=== PATIENT | female | born 1965 | race Caucasian/White ===

== ENCOUNTER 2016-10-19 08:15 | Emergency (ER) | payer MEDICARE ==
[2016-10-19 09:08] LABS: BASOPHILS 0.2 % (0-2); EOSINOPHILS 2.1 % (0-7); HEMATOCRIT 36.8 % (36.0-48.0); HEMOGLOBIN 11.3 g/dL (12-16); IMMATURE GRANULOCYTES 0.2 % (0-5); LYMPHOCYTES 18.5 % (15-50); MCH 22.3 pg (26.0-34.0); MCHC 30.7 g/dL (31.0-37.0); MCV 72.7 fL (80.0-100.0); MONOCYTES 7.3 % (2-11); NEUTROPHILS 71.7 % (40-80); PLATELET COUNT 180 10x3/uL (130-400); RBC 5.06 10x6/uL (4.00-5.40); RDW 18.8 % (11.5-14.5); WBC 8.1 10x3/uL (4.8-10.8)
[2016-10-19 09:20] LABS: ALBUMIN 3.5 g/dL (3.4-5.0); ANION GAP 15.2 mmol/L (8-16); BILIRUBIN - TOTAL 0.39 mg/dL (0.2-1.3); CARBON DIOXIDE 23.7 mmol/L (21.0-32.0); POTASSIUM - SERUM 3.9 mmol/L (3.5-5.1); PROTEIN - SERUM 7.8 g/dL (6.4-8.2)
== END 2016-10-19 11:26 | disposition home or self-care (01) ==
LOC: D.ER 08:15
PROVIDERS: Emergency Medicine
DX: S16.1XXA Strain of muscle, fascia and tendon at neck level, initial encounter (principal); V49.9XXA Car occupant (driver) (passenger) injured in unspecified traffic accident, initial encounter; Y93.89 Activity, other specified; Y92.410 Unspecified street and highway as the place of occurrence of the external cause; S39.012A Strain of muscle, fascia and tendon of lower back, initial encounter; I10 Essential (primary) hypertension; E03.9 Hypothyroidism, unspecified

== ENCOUNTER → 2016-11-22 08:20 | Outpatient (CLI) | payer MEDICARE | END | disposition home or self-care (01) | LOC: D.NM 08:20 | DX: M25.561 Pain in right knee (principal) ==

== ENCOUNTER 2017-02-06 10:36 | Inpatient (IN) | payer MEDICARE ==
[~2017-02-06] VITALS: Ht 160 cm; Wt 124.3 kg
[2017-02-06 11:57] LABS: BASOPHILS 0.3 % (0-2); EOSINOPHILS 4.1 % (0-7); HEMATOCRIT 29.3 % (36.0-48.0); HEMOGLOBIN 8.9 g/dL (12-16); IMMATURE GRANULOCYTES 1.1 % (0-5); LYMPHOCYTES 24.2 % (15-50); MCH 22.1 pg (26.0-34.0); MCHC 30.4 g/dL (31.0-37.0); MCV 72.9 fL (80.0-100.0); MEAN PLATELET VOLUME 10.1 fL (7.4-10.4); MONOCYTES 7.6 % (2-11); NEUTROPHILS 62.7 % (40-80); PLATELET COUNT 184 10x3/uL (130-400); RBC 4.02 10x6/uL (4.00-5.40); RDW 18.9 % (11.5-14.5); WBC 6.3 10x3/uL (4.8-10.8)
[2017-02-06 12:05] LABS: APTT 29.1 SECONDS (22.8-39.4)
[2017-02-06 12:06] LABS: D-DIMER-QUANTITATIVE 2.54 ug/mLFEU (0.20-0.54)
[2017-02-06 12:09] LABS: ALBUMIN 3.7 g/dL (3.4-5.0); ANION GAP 11.8 mmol/L (8-16); BILIRUBIN - TOTAL 0.96 mg/dL (0.2-1.3); CALCIUM 8.4 mg/dL (8.5-10.1); CARBON DIOXIDE 27.4 mmol/L (21.0-32.0); CREATININE - SERUM 0.9 mg/dL (0.6-1.3); POTASSIUM - SERUM 4.2 mmol/L (3.5-5.1); PROTEIN - SERUM 7.2 g/dL (6.4-8.2)
[2017-02-06 12:17] LABS: MAGNESIUM - SERUM 2.1 mg/dL (1.8-2.4)
--- NOTE | 2017-02-06 15:07 | NUR ---
RECEIVED TO ROOM 2228 AT THIS TIME FROM ER VIA WHEELCHAIR. ALERT AND ORIENTED AT THIS TIME. IV TO LEFT WRIST PATENT. ASSESSMENT AND HISTORY OBTAINED PER FLOWSHEET. WILL CONTINUE WITH PLAN OF CARE. CALL LIGHT IN REACH.
[2017-02-06] MEDS ORDERED: ARMOUR THYROID90 MG PO (15:10)
[2017-02-06] MEDS ORDERED: LANOXIN250 MCG PO (15:10)
[2017-02-06] MEDS ORDERED: DEMADEX20 MG PO (15:11)
[2017-02-06] MEDS ORDERED: OXYCODONE HCL5 MG PO (15:12)
[2017-02-06] MEDS ORDERED: LISINOPRIL10 MG PO (15:12)
[2017-02-06] MEDS ORDERED: NAPROSYN500 MG PO (15:14)
[2017-02-06 15:43] VITALS: BP 186/85; BMI 48.6
--- NOTE | 2017-02-06 16:27 | NUR ---
LEAD SHAREPOINT DEVELOPER INITIATED AT THIS TIME PER ORDER.
[2017-02-06 16:42] VITALS: BP 185/92
[2017-02-06 16:53] LABS: CKMB 9.2 U/L (0.0-3.6); CREATINE KINASE 96 UL (21-215)
[2017-02-06 17:07] LABS: TROPONIN-I < 0.017 ng/mL (0.000-0.060)
[2017-02-06 20:00] VITALS: BP 144/78
[2017-02-06 22:00] LABS: CREATINE KINASE 81 UL (21-215)
[2017-02-06 22:01] LABS: TROPONIN-I < 0.017 ng/mL (0.000-0.060)
[2017-02-07] VITALS (7 sets, daily range): BP systolic 132–177; BP diastolic 59–96; Ht 160 cm; Wt 124.3 kg
--- NOTE | 2017-02-07 00:35 | NUR ---
PATIENT IS AWAKE, ALERT AND ORIENTED X'S 4. RESPIRATIONS ARE EVEN AND UNLABORED ON ROOM AIR. NO SIGNS OF DISTRESS NOTED. BED IN LOWEST POSITION, CALL LIGHT IN REACH. BED RAILS UP X'S 2. CONVERSATED WITH PATIENT FOR AWHILE SHE IS VERY PLEASENT.
--- NOTE | 2017-02-07 00:41 | NUR ---
MANUAL BP 140/78 HANDY WORKER REPORTED A BP OF 177/96. PATIENT EXPLAINED THAT SHE WAS STARTLED WHEN THE HANDY WORKER CAME IN. NO NEEDS NOTED AT THIS TIME.
[2017-02-07 06:01] LABS: BASOPHILS 0.2 % (0-2); EOSINOPHILS 1.2 % (0-7); HEMATOCRIT 29.8 % (36.0-48.0); HEMOGLOBIN 9.1 g/dL (12-16); IMMATURE GRANULOCYTES 0.8 % (0-5); LYMPHOCYTES 11.8 % (15-50); MCH 22.3 pg (26.0-34.0); MCHC 30.5 g/dL (31.0-37.0); MEAN PLATELET VOLUME 10.5 fL (7.4-10.4); MONOCYTES 2.7 % (2-11); NEUTROPHILS 83.3 % (40-80); PLATELET COUNT 180 10x3/uL (130-400); RBC 4.08 10x6/uL (4.00-5.40); RDW 19.3 % (11.5-14.5)
[2017-02-07 06:35] LABS: ALBUMIN 3.5 g/dL (3.4-5.0); ANION GAP 12.2 mmol/L (8-16); BILIRUBIN - TOTAL 0.64 mg/dL (0.2-1.3); CALCIUM 8.4 mg/dL (8.5-10.1); CARBON DIOXIDE 27.2 mmol/L (21.0-32.0); POTASSIUM - SERUM 4.4 mmol/L (3.5-5.1); PROTEIN - SERUM 7.3 g/dL (6.4-8.2)
[2017-02-07 07:01] LABS: CREATINE KINASE 60 UL (21-215)
[2017-02-07 07:02] LABS: TROPONIN-I < 0.017 ng/mL (0.000-0.060)
--- NOTE | 2017-02-07 07:45 | NUR ---
ASSESSMENT PER FLOW SHEET.PT WITHOUT DISTRESS.PAIN 8/10 SCALE TO THE TOP OF RIGHT FOOT (BURNING).SHE ALSO REPORTS PAIN TO RIGHT CHEST WHEN SHE TAKES A BREATH.INCISION RIGHT KNEE APROXIMATED WITH JACOB,SITE WITHOUT DRAINAGE.MONITOR FOR NEEDS.NUCLEAR LOGGING ENGINEER USE INSTRUCTED.
--- NOTE | 2017-02-07 18:03 | NUR ---
REMAINS WITHOUT DISTRESS.STILL C/O PAIN IN RIGHT FOOT AND RIGHT CHEST/SIDE. WITHOUT CHANGE.CONT PLAN OF CARE
--- NOTE | 2017-02-07 20:50 | NUR ---
REPORT RECEIVED FROM MANAGER PROFESSIONAL DEVELOPMENT NURSE. CALL LIGHT IN REACH.
--- NOTE | 2017-02-07 21:20 | NUR ---
ASSESSMENT COMPLETED. PM MEDS ADMINISTERED. CALL LIGHT IN REACH. WILL CONTINUE WITH PLAN OF CARE.
--- NOTE | 2017-02-07 23:29 | NUR ---
NO NEEDS VOICED AT THIS TIME. CALL LIGHT IN REACH.
[2017-02-08] VITALS: BP 156/78
--- NOTE | 2017-02-08 00:23 | NUR ---
STATES SHE FEELS LIKE SHE NEEDS OXYGEN AFTER GETTING UP. O2 SAT 96% ON ROOM AIR BUT PATIENT VERY SHORT OF BREATH. NO WHEEZING AUSCULTATED. STATES SHE FELT BETTER WHEN SHE WAS GETTING BREATHING TREATMENTS. WILL CALL MD FOR NEW ORDERS.
--- NOTE | 2017-02-08 00:27 | NUR ---
SPOKE WITH DR. WELSH. NEW ORDERS RECEIVED. RESPIRATORY THERAPIST NOTIFIED.
--- NOTE | 2017-02-08 00:44 | NUR ---
RT HERE FOR BREATHING TREATMENT.
--- NOTE | 2017-02-08 02:28 | NUR ---
RESTING WITH EYES CLOSED. RESP EVEN AND UNLABORED. CALL LIGHT IN REACH.
[2017-02-08 04:00] VITALS: BP 135/58
--- NOTE | 2017-02-08 04:00 | NUR ---
PT IN BED WITH NO DISTRESS. RESPIRATIONS EVEN AND UNLABORED. SIDE RAILS X 2. BED LOW. CALL LIGHT IN REACH.
[2017-02-08 05:37] LABS: BASOPHILS 0 % (0-2); EOSINOPHILS 0 % (0-7); HEMATOCRIT 27.1 % (36.0-48.0); HEMOGLOBIN 8.2 g/dL (12-16); IMMATURE GRANULOCYTES 0.8 % (0-5); LYMPHOCYTES 8.9 % (15-50); MCH 22.3 pg (26.0-34.0); MCHC 30.3 g/dL (31.0-37.0); MCV 73.8 fL (80.0-100.0); MONOCYTES 6.1 % (2-11); NEUTROPHILS 84.2 % (40-80); PLATELET COUNT 200 10x3/uL (130-400); RBC 3.67 10x6/uL (4.00-5.40); RDW 19.7 % (11.5-14.5); WBC 7.5 10x3/uL (4.8-10.8)
[2017-02-08 05:55] LABS: INR 1.12 (0.85-1.17); PROTIME 14.3 SECONDS (11.6-15.0)
--- NOTE | 2017-02-08 06:19 | NUR ---
NO CHANGES IN INITIAL ASSESSMENT. CALL LIGHT IN REACH. WILL CONTINUE WITH PLAN OF CARE.
[2017-02-08 06:30] LABS: ALBUMIN 3.6 g/dL (3.4-5.0); ANION GAP 14.4 mmol/L (8-16); BILIRUBIN - TOTAL 0.46 mg/dL (0.2-1.3); CALCIUM 8.8 mg/dL (8.5-10.1); CARBON DIOXIDE 24.5 mmol/L (21.0-32.0); CREATININE - SERUM 1.2 mg/dL (0.6-1.3); POTASSIUM - SERUM 4.9 mmol/L (3.5-5.1); PROTEIN - SERUM 7.1 g/dL (6.4-8.2)
--- NOTE | 2017-02-08 07:51 | NUR ---
CM MET WITH PATIENT REGARDING D/C NEEDS AND PLANS. PATIENT STATED SHE LIVES WITH HER SPOUSE (MELONIE) AND HE WILL DRIVE HER HOME AT DISCHARGE. PATIENT STATED SHE HAS NO STEPS OR STAIRS AT HER HOME. PATIENT IS PARTIAL DEPENDENT FOR HER ADLS-SPOUSE HELPS HER WITH BATHING AND DRESSING. PATIENT HAS A WALKER, SHOWER CHAIR, AND NEBULIZER AT HOME. PATIENTS PCP IS DR. BRIONES AND PHARMACY IS [facility] AT THE [facility]. PATIENT HAD A KNEE REVISION January AT [facility]. PATIENT STATED SHE IS GETTING AROUND GOOD WITH HER WALKER. HOME HEALTH WAS OFFERED AND PATIENT REFUSED AT THIS TIME. CM WILL CONTINUE TO FOLLOW PATIENT WITH D/C NEEDS AND PLANS. PCP DR. [facility] AT [facility]- [phone] MELONIE (SPOUSE) [phone]
--- NOTE | 2017-02-08 08:00 | NUR ---
ASSESSMENT PER FLOW SHEET.PT WITHOUT DISTRESS.CALL LIGHT IN REACH.
[2017-02-08 08:53] VITALS: BP 160/70
[2017-02-08 16:35] VITALS: BP 168/77
--- NOTE | 2017-02-08 18:27 | NUR ---
REMAINS WITHOUT DISTRESS.NEUROLOGY PHYSICIAN FOR PAIN.DENIES NEEDS.WITHOUT CHANGE.CONT PLAN OF CARE
[2017-02-08 20:00] VITALS: BP 153/71
[2017-02-09] VITALS: BP 138/81
--- NOTE | 2017-02-09 03:51 | NUR ---
RN NOTE: PT RESTING QUIETLY IN SEMI MANN'S POSITION WITH EYES CLOSED AND UNLABORED BREATHING. DRESSING ON RIGHT KNEE CLEAN AND DRY. IV IN LEFT WRIST PATENT WITH NS AT KVO AND MORPHINE TOBACCO GRADER IN USE FOR PAIN CONTROL. WILL CONTINUE TO MONITOR FOR NEEDS. CALL LIGHT WITHIN REACH.
[2017-02-09 04:00] VITALS: BP 127/50
[2017-02-09 05:42] LABS: BASOPHILS 0 % (0-2); EOSINOPHILS 0.1 % (0-7); HEMATOCRIT 27.3 % (36.0-48.0); HEMOGLOBIN 8.2 g/dL (12-16); IMMATURE GRANULOCYTES 0.4 % (0-5); MCH 22.2 pg (26.0-34.0); MCV 73.8 fL (80.0-100.0); MEAN PLATELET VOLUME 10.9 fL (7.4-10.4); MONOCYTES 7.5 % (2-11); PLATELET COUNT 183 10x3/uL (130-400); RDW 19.5 % (11.5-14.5); WBC 7.7 10x3/uL (4.8-10.8)
[2017-02-09 06:13] LABS: ALBUMIN 3.2 g/dL (3.4-5.0); BILIRUBIN - TOTAL 0.4 mg/dL (0.2-1.3); CALCIUM 8.3 mg/dL (8.5-10.1); PROTEIN - SERUM 6.6 g/dL (6.4-8.2)
[2017-02-09 06:18] LABS: ANION GAP 10.2 mmol/L (8-16); CARBON DIOXIDE 30.7 mmol/L (21.0-32.0); POTASSIUM - SERUM 3.9 mmol/L (3.5-5.1)
--- NOTE | 2017-02-09 07:45 | NUR ---
PT ASSESSMENT COMPLETE AWAKE AND ALERT ORIENTED JACOB NOTED TO RIGHT KNEE. DENIES PAIN TO STAFF WHEN QUESTIONED HAS 1.5 LPM O2 NASAL CANULA. CALL LIGHT IN REACH SIDE RAILS UP X 2 VOICES ALL NEEDS TO STAFF.
[2017-02-09 08:55] VITALS: BP 164/78
[2017-02-09 11:17] LABS: ANA REFLEX - ANTICHROMATIN ABS <0.2 AI (0.0-0.9); ANA REFLEX - CENTROMERE B ABS <0.2 AI (0.0-0.9); ANA REFLEX - DBL STRANDED DNA 9 IU/mL (0-9); ANA REFLEX - DIRECT Positive (Negative); ANA REFLEX - JO-1 AB <0.2 AI (0.0-0.9); ANA REFLEX - RNP ANTIBODIES 1.7 AI (0.0-0.9); ANA REFLEX - SCL-70 <0.2 AI (0.0-0.9); ANA REFLEX - SJOGRENS AB SSA <0.2 AI (0.0-0.9); ANA REFLEX - SJOGRENS AB SSB <0.2 AI (0.0-0.9); ANA REFLEX - SMITH AB 0.4 AI (0.0-0.9)
[2017-02-09 12:23] VITALS: BP 163/79
[2017-02-09 16:49] VITALS: BP 136/62
[2017-02-09 20:00] VITALS: BP 165/72
--- NOTE | 2017-02-09 23:00 | NUR ---
PATIENT IS AWAKE, ALERT AND ORIENTED X'S 4. RESPIRATIONS ARE EVEN AND UNLABORED. PATIENT DENIES NEEDS AT THIS TIME. BED IN LOWEST POSITIONS, CALL LIGHT IN REACH. BED RAILS UP X'S 2.
[2017-02-10] VITALS: BP 132/60
[2017-02-10 04:00] VITALS: BP 138/65
[2017-02-10 05:04] LABS: BASOPHILS 0 % (0-2); EOSINOPHILS 0.1 % (0-7); HEMOGLOBIN 8.9 g/dL (12-16); IMMATURE GRANULOCYTES 0.6 % (0-5); MCH 21.9 pg (26.0-34.0); MCHC 29.7 g/dL (31.0-37.0); MCV 73.7 fL (80.0-100.0); NEUTROPHILS 68.3 % (40-80); PLATELET COUNT 197 10x3/uL (130-400); RBC 4.07 10x6/uL (4.00-5.40); RDW 19.2 % (11.5-14.5); WBC 8.1 10x3/uL (4.8-10.8)
[2017-02-10 05:43] LABS: ALBUMIN 3.3 g/dL (3.4-5.0); ANION GAP 8.8 mmol/L (8-16); BILIRUBIN - TOTAL 0.4 mg/dL (0.2-1.3); CALCIUM 8.4 mg/dL (8.5-10.1); CARBON DIOXIDE 30.4 mmol/L (21.0-32.0); POTASSIUM - SERUM 4.2 mmol/L (3.5-5.1); PROTEIN - SERUM 6.6 g/dL (6.4-8.2)
--- NOTE | 2017-02-10 07:30 | NUR ---
PT ASSESSMENT COMPLETE AWAKE AND ALERT ORIENTED X 3 LUNGS WITH DIMINISHED SOUNDS NOTED TO LEFT UPPER LOBE BSA X 4 QUADS JACOB NOTED TO RIGHT KNEE
[2017-02-10 08:50] VITALS: BP 141/84
--- NOTE | 2017-02-10 09:41 | EC ---
PATIENT:EZRA GUILLAUME DATE OF SERVICE: 02/06/17 SEX: F MEDICAL RECORD: [id number] DATE OF : [birth year] LOCATION:[facility] AGE OF PATIENT: 51 ADMISSION DATE: 02/06/17 REFERRING PHYSICIAN: INTERPRETING PHYSICIAN: GRIS MEJIA MD ECHOCARDIOGRAM REPORT ECHO CHARGES 4 ECHO COMPLETE CLINICAL DIAGNOSIS: SOB/CHF/ BLOOD CLOT IN R LEG HX OF CAD/CABG/HTN/CHF ECHOCARDIOGRAPHIC MEASUREMENTS (adult normal given) AC root (d.<3.7cm) 2.7 cm LV Septum d (<1.2 cm> 1.5 cm Valve Excursion 1.4 cm LV Septum (systole) 1.8 cm Left Atria (s.<4.0cm> 4.4 cm LVPW d(<1.2cm) 1.5 cm RV (d.<2.3cm) 3.5 cm LVPW (sytole) 1.8 cm LV diastole(<5.6CM) 4.9 cm MV E-F(>70mm/sec) cm LV systole 2.9 cm LVOT Diameter 1.9 cm MV exc.(>10mm) 1.5 cm Est.ejection fraction (50-75%) % Pericardial Effusion N DOPPLER: LVIT cm/sec A 77.0 cm/sec E 100 cm/sec LA cm/sec RVSP 21 mmHg LVOT 89 cm/sec AOP1/2T 539 m/s Asc. Ao 142 cm/sec RVOT 123 cm/sec RA 179 cm/sec PA cm/sec AV Gradient Peak 8.09 mmHg AV Mean 4.08 mmHg AV Area 2.1 cm MV Gradient Peak 4.37 mmHg MV Mean 1.92 mmHg MV Area cm COMMENTS: Watch And Clock Repair Clerk: Precious ANAND Wire Spinner: 1 Dr. Mejia TAPE# PACS DATE OF SERVICE: 02/07/2017 Echocardiogram FINDINGS: 1. Left ventricle chamber size is within normal limits. Left ventricular systolic function is normal. Overall ejection fraction estimated at 55%. 2. Left atrium is enlarged at 4.4 cm. Right atrium and right ventricular chamber sizes are as well mildly dilated. 3. Valvular structures have normal structure and motion. ECHOCARDIOGRAM REPORT [id number] EZRA GUILLAUME 4. Doppler interrogation reveals mild aortic insufficiency, mild tricuspid regurgitation, no other valvular insufficiency or stenosis and pulmonary systolic pressure is normal estimated at 21 mmHg. 5. No evidence of pericardial effusion or left ventricular thrombus. TRANSINT:[id number] Voice Confirmation ID: [id number] DOCUMENT ID: [id number] GRIS MEJIA MD at 0941 CC: [id number] DICTATION DATE: 02/08/17 1147 CAR SALESPERSON: 02/08/17 1419 ADM IN [place] [id number] [place] [address]
--- NOTE | 2017-02-10 12:29 | NUR ---
CM REASSESSMENT NOTE: PATIENT IS DISCHARGING HOME TODAY WITH HOUSE CALLS AND OP PT WITH ZIA AT THE [facility] ON MONDAY. SPOUSE IS DRIVING PATIENT HOME. PATIENT DID NOT WANT HOME HEALTH.
[2017-02-10 12:33] VITALS: BP 193/85
[2017-02-10] MEDS ORDERED: BENZONATATE200 MG PO (13:28)
[2017-02-10] MEDS ORDERED: LASIX20 MG PO (13:28)
[2017-02-10] MEDS ORDERED: PULMICORT0.5 MG/21 UPD (13:29)
[2017-02-10] MEDS ORDERED: PREDNISONE20 MG PO (13:29)
[2017-02-10] MEDS ORDERED: COLACE100 MG PO (13:29)
[2017-02-10] MEDS ORDERED: MUCINEX DM ER1 EAC1 PO (13:29)
[2017-02-10] MEDS ORDERED: ELIQUIS5 MG PO (13:31)
--- NOTE | 2017-02-10 13:44 | NUR ---
Nutrition Follow Up: Pt stated that her appetite is good and she likes the food here. Pt is eating 89% meal avg on an AHA diet. Wt gain since admit noted. +BM 02/08/17. Labs reviewed - Glucose elevated. Meds noted including Prednisone and Lasix. Rec continue current diet. RD following.
--- NOTE | 2017-02-10 16:03 | NUR ---
PT DISCHARGED TO HOME CARE WITH UNDERSTANDING EXPRESSED OF ALL FOLLOW UP APPOINTMENTS AND CARE. PIV DISCONTINUED TOLERATED WELL PRESSURE DRESSED WITH KOFI WRAP TO STOP BLEEDING PT HAS BEEN ON LOVENOX AND ELIQUIS
[2017-02-10 21:08] LABS: CYCLIC CITRULL PEPTIDE IGG/IGA 3 units (0-19)
== END 2017-02-10 16:04 | disposition home or self-care (01) | DRG 291 ==
LOC: D.ER 10:36 → D.MS 14:20
PROVIDERS: Emergency Medicine; Internal Medicine Pulmonary Disease; ADMIT Emergency Medicine
DX: I11.0 Hypertensive heart disease with heart failure (principal); J18.1 Lobar pneumonia, unspecified organism; I82.441 Acute embolism and thrombosis of right tibial vein; D62 Acute posthemorrhagic anemia; J45.901 Unspecified asthma with (acute) exacerbation; J90 Pleural effusion, not elsewhere classified; B19.10 Unspecified viral hepatitis B without hepatic coma; I50.31 Acute diastolic (congestive) heart failure; I48.91 Unspecified atrial fibrillation; E03.9 Hypothyroidism, unspecified; F43.10 Post-traumatic stress disorder, unspecified; N95.0 Postmenopausal bleeding; I51.7 Cardiomegaly; F32.9 Major depressive disorder, single episode, unspecified

== ENCOUNTER 2017-05-03 05:45 | Day surgery (SDC) | payer MEDICARE ==
[2017-05-02 10:48] LABS: BASOPHILS 0.2 % (0-2); EOSINOPHILS 2.4 % (0-7); HEMATOCRIT 32.9 % (36.0-48.0); HEMOGLOBIN 9.9 g/dL (12-16); IMMATURE GRANULOCYTES 0.4 % (0-5); LYMPHOCYTES 17.5 % (15-50); MCH 20.1 pg (26.0-34.0); MCHC 30.1 g/dL (31.0-37.0); MCV 66.7 fL (80.0-100.0); MONOCYTES 6.3 % (2-11); NEUTROPHILS 73.2 % (40-80); RBC 4.93 10x6/uL (4.00-5.40); RDW 17.4 % (11.5-14.5); WBC 9.3 10x3/uL (4.8-10.8)
[2017-05-02 10:53] LABS: PLATELET COUNT 250 10x3/uL (130-400)
[2017-05-02 11:11] LABS: ANION GAP 16.9 mmol/L (8-16); CALCIUM 9.2 mg/dL (8.5-10.1); CARBON DIOXIDE 21.1 mmol/L (21.0-32.0); CREATININE - SERUM 0.9 mg/dL (0.6-1.3)
[~2017-05-03 05:45] MED LIST: ARMOUR THYROID120 MG PO; BENZONATATE200 MG PO; COLACE100 MG PO; DEMADEX20 MG PO; ELIQUIS5 MG PO; FUROSEMIDE20 MG PO; GLUCOPHAGE1000 MG PO; LANOXIN250 MCG PO; LASIX20 MG PO; LISINOPRIL10 MG PO; MUCINEX DM ER1 EAC1 PO; NAPROSYN500 MG PO; OXYCODONE HCL5 MG PO; PREDNISONE20 MG PO; PULMICORT0.5 MG/21 UPD
[2017-05-03 10:14] VITALS: BP 137/94; BMI 47.7
--- NOTE | 2017-05-03 10:51 | HP ---
PATIENT: EZRA GUILLAUME MEDICAL RECORD: [id number] ACCOUNT: [id number] LOCATION:[facility] : 67 ADMISSION DATE: 05/03/17 HISTORY AND PHYSICAL EXAMINATION HISTORY OF PRESENT ILLNESS: This patient is a 51-year-old white female with numerous medical problems including postmenopausal vaginal bleeding. She is scheduled for examination under anesthesia with appropriate biopsies and hysteroscopy in a.m. ALLERGIES: TO CODEINE, HEPARIN, MORPHINE, SHELLFISH, VALIUM, AND VICODIN. MEDICATIONS: Include thyroid medication, digoxin, Levaquin, lisinopril, metformin, oxycodone, and torsemide. MEDICAL PROBLEMS: Include a previous myocardial infarction; gastric reflux; liver problems; arthritis; hypertension; hypothyroidism; congestive heart failure; type 2 diabetes, which has not been well controlled; anxiety; atrial fibrillation; and hyperlipidemia. FAMILY HISTORY: Noncontributory. REVIEW OF SYSTEMS: No recent chest pain. No severe dyspnea. Positive for vaginal bleeding. PHYSICAL EXAMINATION: VITAL SIGNS: Blood pressure is 150/80. Her weight is 275. HEENT: Grossly unremarkable. LUNGS: Clear to auscultation. HEART: Regular rate and rhythm. PELVIC: Current and deferred for anesthesia. EXTREMITIES: No cyanosis, clubbing or edema. The patient does walk with a cane. NEUROLOGIC: Grossly intact. IMPRESSION: Postmenopausal bleeding with numerous medical problems. Negative Pap smear. PLAN: Examination under anesthesia, endocervical curettage, cervical dilatation, hysteroscopy, endometrial biopsy, and endometrial curettage, all indicated procedures. I have discussed the planned procedure with the patient and answered all her questions. I also discussed risks including anesthesia, infection, bleeding, perforation of the uterus, injury to other organs. All her questions regarding this were answered. TRANSINT:[id number] Voice Confirmation ID: [id number] DOCUMENT ID: [id number] HISTORY AND PHYSICAL [id number] EZRA GUILLAUME MARK PETERS MD at 1051 CC: [id number] DICTATION DATE: 05/02/17 1400 BOILER ROOM OPERATOR: 05/02/17 [address] [place] [address]
[2017-05-03 10:58] LABS: HCG URINE NEGATIVE (NEGATIVE)
--- NOTE | 2017-05-03 11:52 | NUR ---
PT STATES IODINE ON HER SKIN IS FINE
== END 2017-05-03 14:26 | disposition home or self-care (01) ==
LOC: D.OPS 05:45 → D.PAN 08:30 → D.OPS 10:00
PROVIDERS: Obstetrics & Gynecology
DX: N85.8 Other specified noninflammatory disorders of uterus (principal); N95.0 Postmenopausal bleeding; I25.2 Old myocardial infarction; I11.0 Hypertensive heart disease with heart failure; I50.9 Heart failure, unspecified; K21.9 Gastro-esophageal reflux disease without esophagitis; K76.9 Liver disease, unspecified; M19.90 Unspecified osteoarthritis, unspecified site; E03.9 Hypothyroidism, unspecified; E11.9 Type 2 diabetes mellitus without complications; F41.9 Anxiety disorder, unspecified; I48.91 Unspecified atrial fibrillation; E78.5 Hyperlipidemia, unspecified; Z88.8 Allergy status to other drugs, medicaments and biological substances; Z88.5 Allergy status to narcotic agent; Z91.013 Allergy to seafood; Z79.2 Long term (current) use of antibiotics; Z79.84 Long term (current) use of oral hypoglycemic drugs; Z79.891 Long term (current) use of opiate analgesic; Z79.899 Other long term (current) drug therapy; Z01.812 Encounter for preprocedural laboratory examination

== ENCOUNTER → 2017-07-28 07:47 | Outpatient (CLI) | payer MEDICARE | END | disposition home or self-care (01) | LOC: D.NM 07:47 | DX: M25.261 Flail joint, right knee (principal) ==

== ENCOUNTER → 2017-08-18 15:06 | Outpatient (CLI) | payer MEDICARE ==
[2017-08-18 15:15] LABS: BASOPHILS 0.2 % (0-2); EOSINOPHILS 2.3 % (0-7); HEMATOCRIT 34.7 % (36.0-48.0); HEMOGLOBIN 10.2 g/dL (12-16); IMMATURE GRANULOCYTES 0.2 % (0-5); LYMPHOCYTES 26.5 % (15-50); MCHC 29.4 g/dL (31.0-37.0); MCV 65.1 fL (80.0-100.0); MONOCYTES 6.8 % (2-11); PLATELET COUNT 276 10x3/uL (130-400); RBC 5.33 10x6/uL (4.00-5.40); RDW 18.9 % (11.5-14.5); WBC 8.7 10x3/uL (4.8-10.8)
[2017-08-18 15:17] LABS: MCH 19.1 pg (26.0-34.0)
[2017-08-18 18:17] LABS: ERYTHROCYTE SEDIMENTATION RATE 51 mm/hr (0-30)
== END | disposition home or self-care (01) ==
LOC: D.LABREF 15:06
PROVIDERS: Orthopaedic Surgery
DX: M25.561 Pain in right knee (principal)

== ENCOUNTER 2018-02-12 08:00 | Outpatient (CLI) | payer MEDICARE | END 2018-02-12 09:00 | disposition home or self-care (01) | LOC: D.MAMMO 08:00 | DX: Z12.31 Encounter for screening mammogram for malignant neoplasm of breast (principal) ==

== ENCOUNTER → 2018-04-04 22:26 | Outpatient (CLI) | payer MEDICARE | END | disposition home or self-care (01) | LOC: D.MAMMO 14:30 | DX: R92.8 Other abnormal and inconclusive findings on diagnostic imaging of breast (principal) ==